=== PATIENT | female | born 1960 | race Caucasian/White ===

== ENCOUNTER 2016-11-27 14:10 | Emergency (ER) | payer OTHER ==
[~2016-11-27] VITALS: Ht 165.1 cm; Wt 76.4 kg
[~2016-11-27 14:10] MED LIST: GABA-529 PO; LEVO25TA4 PO; OXYC10 PO
[2016-11-27] MEDS ORDERED: KETOROLAC TROMETHAMINE 60 MG/2 ML VIAL IM ONE (15:00)
[2016-11-27 15:58] VITALS: BP 142/79
== END 2016-11-27 16:35 | disposition home or self-care (01) ==
LOC: EMS 14:12
DX: M54.42 Lumbago with sciatica, left side (principal); Z88.5 Allergy status to narcotic agent; Z88.6 Allergy status to analgesic agent
CPT/HCPCS: 96372; 99283; J1885